=== PATIENT | female | born 1980 | race Two or more races ===

== ENCOUNTER 2021-06-01 23:28 | Emergency (ER) | payer MEDICAID ==
[~2021-06-01] VITALS: Ht 162.6 cm; Wt 68.2 kg
[2021-06-02] MEDS ORDERED: PROPARACAINE HCL 0.5% 15 ML OPHTHALMIC SOLUTION OS ONE (01:15)
[2021-06-02] MEDS ORDERED: FLUORESCEIN SODIUM 1 MG STRIP ONE (01:21)
[2021-06-02] MEDS ORDERED: ACETAMINOPHEN 325 MG TABLET PO ONE (01:30)
[2021-06-02 01:40] VITALS: BP 124/63
== END 2021-06-02 02:00 | disposition home or self-care (01) ==
LOC: EMS 23:30
DX: B30.9 Viral conjunctivitis, unspecified (principal)
CPT/HCPCS: 99283

== ENCOUNTER 2022-01-31 16:00 | Emergency (ER) | payer MEDICAID ==
[~2022-01-31] VITALS: Ht 162.6 cm; Wt 68.2 kg
[2022-01-31 16:10] VITALS: BP 109/70
[2022-01-31] MEDS ORDERED: CIPR2.5D17 OD (16:29)
[2022-01-31] MEDS ORDERED: CIPROFLOXACIN HCL 0.3% 2.5 ML OPHTHALMIC SOLUTION OD ONE (16:30)
== END 2022-01-31 17:00 | disposition home or self-care (01) ==
LOC: EMS 16:00
DX: H16.001 Unspecified corneal ulcer, right eye (principal)
CPT/HCPCS: 99283

== ENCOUNTER 2022-02-26 06:22 | Emergency (ER) | payer MEDICAID ==
[~2022-02-26] VITALS: Ht 162.6 cm; Wt 70.0 kg
[~2022-02-26 06:22] MED LIST: CIPR2.5D17 OD
[2022-02-26 10:35] VITALS: BP 116/72
[2022-02-26] MEDS ORDERED: CEPH-558 PO ×2 (12:52→13:29)
== END 2022-02-26 13:36 | disposition home or self-care (01) ==
LOC: EMS 06:23
DX: R22.0 Localized swelling, mass and lump, head (principal)
CPT/HCPCS: 70486; 99285; Z7502

== ENCOUNTER 2022-03-29 22:00 | Emergency (ER) | payer MEDICAID ==
[~2022-03-29] VITALS: Ht 162.6 cm; Wt 72.7 kg
[~2022-03-29 22:00] MED LIST changes: +CEPH-558 PO; -CIPR2.5D17 OD
[2022-03-29 22:05] VITALS: BP 104/51
== END 2022-03-30 02:16 | disposition left against medical advice (07) ==
LOC: EMS 22:19
DX: S51.812A Laceration without foreign body of left forearm, initial encounter (principal); W45.8XXA Other foreign body or object entering through skin, initial encounter; Y93.89 Activity, other specified; Y92.89 Other specified places as the place of occurrence of the external cause; Y99.8 Other external cause status; Z53.21 Procedure and treatment not carried out due to patient leaving prior to being seen by health care provider